=== PATIENT | male | born 1990 | race Caucasian/White ===

== ENCOUNTER 2022-12-21 19:24 | Emergency (ER) | payer BC ==
[2022-12-21] MEDS ORDERED: Morphine 4 MG/ML Syringe IVPUSH ONE (19:48)
[2022-12-21] MEDS ORDERED: Ondansetron 4 MG/2 ML SDV IVPUSH ONE (19:48)
== END 2022-12-21 20:30 | disposition home or self-care (01) ==
LOC: JD.ED 19:24
DX: N23 Unspecified renal colic (principal); Z79.899 Other long term (current) drug therapy
CPT/HCPCS: 96374; 96375; 99283; J2270; J2405